=== PATIENT | male | born 1980 | race Hispanic/Latino ===

== ENCOUNTER 2016-12-06 19:56 | Emergency (ER) | payer OTHER ==
[~2016-12-06] VITALS: Ht 165.1 cm; Wt 85.4 kg
[~2016-12-06 19:56] MED LIST: NOHOMEMEDS
[2016-12-06 21:03] LABS: ADD MIUA? YES; BILIRUBIN NEGATIVE; BLOOD MODERATE; COLOR YELLOW ((YELLOW)); GLUCOSE (STRIP) NEGATIVE; KETONES NEGATIVE; LEUKOCYTES NEGATIVE; NITRITE NEGATIVE; PROTEIN (STRIP) 30
[2016-12-06 21:06] LABS: HEMATOCRIT 40.6 % (38.0-50.0); MCH 30.2 PG (29.0-34.0); MCHC 32.5 G/DL (30.0-36.0); MCV 92.9 FL (86-99); MEAN PLAT.VOLUME 11.7 uM^3 (9.0-12.4); PLATELET COUNT 213 K/uL (156-360); RBC DIS.WIDTH-CV 12.6 % (11.8-14.6); RBC DIS.WIDTH-SD 43.6 % (39-53); RED BLOOD COUNT 4.37 M/uL (4.00-5.50); WHITE BLOOD COUNT 9.4 K/uL (4.1-10.2)
[2016-12-06 21:10] LABS: BACTERIA RARE /HPF; EPITHELIAL CELLS NONE SEEN /HPF; MUCUS TRACE /LPF; RED BLOOD CELLS 15-20 /HPF (0-5); UCUL ADDED? NO; WHITE BLOOD CELLS 0-5 /HPF (0-5)
[2016-12-06 21:16] LABS: CHLORIDE 108 mEq/L (99-109); POTASSIUM 4.3 mEq/L (3.7-5.4); SODIUM 142 mEq/L (136-147)
[2016-12-06 21:17] LABS: GLUCOSE 98 mg/dL (70-99)
[2016-12-06 21:19] LABS: ANION GAP 9 MEQ/L (2-14)
[2016-12-06 21:21] LABS: GFR ESTIMATE (CALCULATED) > 59 mL/min/
[2016-12-06 21:22] LABS: UREA NITROGEN (BUN) 21 mg/dL (9-23)
[2016-12-06] MEDS ORDERED: FLOMAX0.4 MG PO (23:44)
[2016-12-07 00:05] VITALS: BP 148/73
== END 2016-12-07 00:06 | disposition home or self-care (01) ==
LOC: RME 19:56 → EME 19:56 → RME 12-07 00:06
DX: N20.2 Calculus of kidney with calculus of ureter (principal); I10 Essential (primary) hypertension; E11.9 Type 2 diabetes mellitus without complications; F17.200 Nicotine dependence, unspecified, uncomplicated; F11.10 Opioid abuse, uncomplicated
CPT/HCPCS: 74176; 80048; 81003; 85027; 99281; 99284